=== PATIENT | female | born 1975 | race Caucasian/White ===

== ENCOUNTER → 2016-10-11 | Outpatient (CLI) | payer BC ==
--- NOTE | 2016-10-13 15:48 | DI ---
MRI LOW EXTREMITY JNT W/O CN,10/11/2016 2:00 PM: Clinical History: Right ankle pain of unspecified chronicity. Previous Exam: None at this facility. Findings: Multiplanar MR images are obtained through the right ankle without contrast, and demonstrate anatomic alignment without fractures. There is no subchondral cyst formation. There is no abnormal marrow sig nal. Talar dome and tibial plafond are normal. There is a small cystic mass just posterior to the posterio r subtalar joint measuring 8 mm in diameter. The anterior talofibular ligament is intact. The posterior talofibular ligament is also intact. The Achilles tendon is unremarkable. The flexor and extensor tendons are also unremarkable. The delto id ligamentous complex is unremarkable. The calcaneal navicular ligament is intact. Signal within the surrounding musculature is also unremarkable. The tarsometatarsal joints are within normal limits. The major vascular flow voids are unremarkable. There is some edema within the medial plantar fat wit hout any foreign body identified. The underlying bone is unremarkable. The surrounding musculature is also unremarkable. Impression: 1. Edema within the medial plantar fat without a foreign body. This could represent a contusion or a prior injury. 2. 8mm cystic structure within the posterior right ankle joint may represent a ganglion.
== END ==
LOC: MRI 13:52
PROVIDERS: ATTEND Orthopaedic Surgery
DX: M25.571 Pain in right ankle and joints of right foot (principal); M67.471 Ganglion, right ankle and foot
CPT/HCPCS: 73721